=== PATIENT | female | born 1995 | race Hispanic/Latino ===

== ENCOUNTER 2021-03-25 06:40 | Outpatient (CLI) | payer OTHER | END 2021-03-25 06:41 | disposition home or self-care (01) | LOC: BICULT 06:40 | PROVIDERS: ATTEND Family Medicine | DX: O24.112 Pre-existing type 2 diabetes mellitus, in pregnancy, second trimester (principal) | CPT/HCPCS: 76805 ==

== ENCOUNTER 2021-05-28 06:45 | Outpatient (CLI) | payer MEDICAID, OTHER | END 2021-05-28 06:46 | disposition home or self-care (01) | LOC: BICULT 06:45 | PROVIDERS: ATTEND Family Medicine | DX: O09.893 Supervision of other high risk pregnancies, third trimester (principal); Z3A.32 32 weeks gestation of pregnancy | CPT/HCPCS: 76816; 93975 ==